=== PATIENT | female | born 1940 | race Caucasian/White ===

== ENCOUNTER 2016-04-09 07:13 | Emergency (ER) | payer OTHER ==
[2016-04-09 07:13] VITALS: BMI 21.4
--- NOTE | 2016-04-09 07:33 | EDPRACDOC ---
- General Information Chief Complaint: Arrhythmia Stated Complaint: RAPID HEART RATE Time Seen by Provider: 04/09/16 07:18 Home Medications: Home Medications Albuterol/Ipratropium Neb [Duoneb] 3 ml NEB Q6H 03/11/16 Alprazolam 0.5 mg PO Q8H PRN 03/11/16 Arformoterol Tartrate [Brovana] 15 mcg IH BID 03/11/16 Aspirin (Enteric Coated) [Ecotrin] 81 mg PO DAILY 03/11/16 Budesonide [Pulmicort] 0.25 mg NEB BID 03/11/16 Calcium Carbonate/Vitamin D3 [Caltrate 600 + D Soft Chew Tab] 1 tab PO DAILY Citalopram (anti-depressant) [Celexa] 20 mg PO DAILY 03/11/16 Clopidogrel Bisulfate [Plavix] 75 mg PO DAILY 03/11/16 Metoprolol Tartrate 25 mg PO BID 03/11/16 Ramipril 2.5 mg PO DAILY 03/11/16 Roflumilast [Daliresp] 500 mcg PO DAILY 03/11/16 Simvastatin 10 mg PO DAILY 03/11/16 Tiotropium [place] [Spiriva] 18 mcg INH DAILY 03/11/16 Ubidecarenone [Co Q-10] 300 mg PO DAILY 03/11/16 Cholecalciferol (Vitamin D3) [Vitamin D3] 2,000 unit PO DAILY 04/09/16 Esomeprazole Mag Trihydrate [Nexium] 40 mg PO DAILY 04/09/16 Levofloxacin [Levaquin] 750 mg PO .DAILY X 7D 04/09/16 Metoprolol Tartrate 50 mg PO BID #60 tablet 04/09/16 Prednisone [Deltasone] 20 mg PO .SEE COMMENTS 04/09/16 Saccharomyces Boulardii [Florastor] 250 mg PO .BID X 10D 04/09/16 Allergies/Adverse Reactions: Allergies Allergy/AdvReac Type Severity Reaction Status Date / Time albuterol Allergy See Verified 04/09/16 07:45 Comments - History of Present Illness HPI: PATIENT HAS HAD 2 EPISODES OF SVT. LAST EPISODE WAS IN WHICH SHE STATES WAS WORSE. SHE DENIES CHANGES IN MEDICATIONS AFTER THIS EVENT. SHE HAS CHRONIC SEVERE COPD. EMS FOUND HER IN A RAPID SVT AND GAVE 6MG OF ADENOSINE WHICH CONVERTED THE RHYTHM TO SINUS. Symptoms Started: Reports: Suddenly Relevant History: Reports: PSVT Heart Rate (bpm): 200 Pulse is: Rapid Worsens with: Reports: Nothing Associated signs & symptoms: Reports: Dyspnea Chest Pain Location: Reports: No Pain ED Past Medical History - History Reviewed Yes Nurses notes reviewed and agree except as marked Travel Outside of [place] in the Last 3 Months?: No - Patient Medical History Cardiac History: Reports: Coronary Artery Disease, Hypertension, Heart Attack, Cardiac Catheterization (with stents), Hypercholesterolemia Respiratory History: Reports: COPD (+ CHRONIC RESP FAILURE + GARRY. 3L NC CONTINUOUS+ BIPAP @NIGHT.), Emphysema GI/ History: Reports: Gastroesophageal Reflux, Diverticulosis (+ polyps. Colonscopy 2009 Dr. Villarreal.). Denies: Urinary Tract Infection Musculoskeletal History: Reports: Arthritis, Osteoarthritis Psychological History: Reports: Anxiety. Denies: Depression, Substance Use Disorder Surgical History: Reports: Cholecystectomy, Hysterectomy, Cardiac Catheterization (with stents) - Family Medical History Reports: Hypertension (SIBLINGS), Diabetes (SIB[place]INGS), Cancer (MOTHER), Stroke ( SISTER MOTHER), Cardiac Disorders ([place]IBLINGS) - Social Medical History Smoking Status: Heavy tobacco smoker (5 or more cigarettes/day or daily pipe/ cigar) Social History: Denies: Substance Use Disorder ETOH: None Substance Abuse: None Lives With: Family Lives In: Home EDM Review of Systems - Review of Systems ROS Negative Except as Marked: Yes All systems reviewed and were negative except as marked Constitutional: No Symptoms Reported. negative: Fever, Chills, Weakness, Fatigue, Loss of Appetite Eyes: No Symptoms Reported. negative: Redness, Blurred Vision, Double Vision, Discharge, Pain, Light Sensitive, Photophobia Ears: No Symptoms Reported. negative: Pain, Hearing Loss, Drainage, Ear Pulling Throat: No Symptoms Reported. negative: Pain, Swelling Nose: No Symptoms Reported. negative: Congestion, Bleeding, Discharge, Injection, Swelling, Deformity, Ecchymosis, Tender, Abrasion, Laceration Mouth: No Symptoms Reported. negative: Pain, Drooling Respiratory: Shortness of Breath. negative: Barky Cough, Brassy Cough, Cough, Hemoptysis, Wheezing Cardiovascular: Palpitations. negative: Chest Pain, Cyanosis, Edema, Orthopnea , PND, Syncope, Skin Mottling Gastrointestinal: No Symptoms Reported. negative: Pain, Constipation, Nausea, Vomiting, Diarrhea, Melena, Formula Intolerance Genitourinary: No Symptoms Reported. negative: Dysuria, Hematuria, Frequency, Discharge, Bleeding, Testicular Pain, Neurological: No Symptoms Reported. negative: Headache, Dizziness, Seizure, Numbness, Weakness, Speech Difficulty, Gait Difficulty Musculoskeletal: No Symptoms Reported. negative: Neck, Chestwall, Ribs, Back, Shoulder, Arm, Elbow, Forearm, Wrist, Hand, Pelvis, Hip, Femur, Knee, Leg, Ankle , Foot Integumentary: No Symptoms Reported. negative: Itching, Rash, Bruising, Wound Allergic/Immunologic: No Symptoms Reported. negative: Hives, Itching Hematologic: No Symptoms Reported. negative: Lymphadenopathy, Easy Bruising, Easy Bleeding Endocrine: No Symptoms Reported. negative: Weight Gain, Weight Loss Psychiatric: No Symptoms Reported. negative: Anxiety, Depression, Hallucinations, Insomnia, Suicidal - Physical Exam Constitutional: Alert (Awake), No apparent distress Oriented to: Time, Person, Place Last recorded Vital Signs: Oxygen Pulse Oxygen Saturation O2 Device Oxygen Flow Rate Fraction of Inspired Oxygen ( FIO2) - HEENT Head: Normal ( normocephalic) Eye Exam: Normal (PERRL, EOMI, Sclera white) Oropharynx: Normal (Pharynx:Moist without exudate,Gums-no swelling) Tympanic Membrane: Normal ENT EAC: Normal TMJ: Normal Nose: No Symptoms Reported (septum midline) Neck: Normal (FROM, trachea at midline) - Respiratory/Cardiovascular Respiratory: Other (CHRONIC COPD CHANGES) Cardiovascular: Normal (RRR without murmur, gallop or rub) - GI Auscultation: Normal (NABS) Palpation: Normal (Soft,No rebound or guarding, non distended) Tenderness: Non tender Rey's Sign: Negative - Bladder: Normal - Musculoskeletal Back: Normal (Non-Tender) Extremities: Normal (Normal tone, Pulses 2+ No cyanosis or edema, FROM) - Integumentary Skin: Normal, Warm, Dry Lymphatics: Normal (no adenopathy) - Neurologic Memory Impaired: Normal Motor Function: Normal (Normal tone, Pulses 2+ No cyanosis or edema, FROM) Cranial Nerve: Normal (CN II-X11 intact sensation, strength 5/5) Cerebellar: Normal Mood Description: Normal Perception: Normal - Differential Diagnosis Atrial fibrillation, PSVT - Results 04/09/16 07:38 04/09/16 07:38 - EKG EKG #1 Initial EKG Time: 07:21 -: Yes EKG interpreted by me Rate: bpm: 87 [place]: Normal Rhythm: NSR, Other (SINUS ARRHYTHMIA) Block: None Hypertrophy: None ST: Normal Decision Time to Discharge: 09:10 - Departure Yes I personally saw and evaluated the patient. Disposition: Home Condition: Stable Final Diagnosis: SVT (supraventricular tachycardia) Instructions: Supraventricular Tachycardia (ED) Education/Counseling Given To: Patient Education/Counseling Given Regarding: Diagnosis, Treatment, Prognosis, Follow Up Referrals: None,No Provider [Primary Care Provider] - One Week Vasile Paris MD [Staff Physician] - One Week Prescriptions: Metoprolol Tartrate 50 mg PO BID #60 tablet
[2016-04-09 07:45] VITALS: TEMP 98.2
--- NOTE | 2016-04-09 07:50 | DIRPT ---
CLINICAL DATA: COPD, episode of supraventricular tachycardia responsive to medication. EXAM: PORTABLE CHEST 1 VIEW COMPARISON: Portable chest x-ray of November 16, 2015 FINDINGS: The lungs remain hyperinflated but are clear. The heart is normal in size. The pulmonary vascularity is normal. The mediastinum is normal in width. There is mild tortuosity of the descending thoracic aorta. There is stable curvature of the thoracolumbar spine. IMPRESSION: Celsius OPD. There is no evidence of CHF, pneumonia, nor other acute cardiopulmonary abnormality. Electronically Signed By: Amish Frias M.D. On: 04/09/2016 07:47
[2016-04-09 08:01] LABS: AUTOMATED BASOPHIL 0.3 % (0-2); AUTOMATED EOSINOPHIL 0.3 % (0-5); AUTOMATED LYMPH 22.6 % (17-44); AUTOMATED MONOCYTE 6.9 % (3-10); AUTOMATED NEUTROPHIL 69.9 % (45-76); MPV 6.9 fL (7.4-10.4)
[2016-04-09 08:08] LABS: BLOOD UREA NITROGEN 18 MG/DL (7-17); CALC CORRECTED 9.4 MG/DL (8.4-10.2); CALCIUM 8.9 MG/DL (8.4-10.2); CALCULATED OSMOLALITY 269 MOs/Kg (270-290); CHLORIDE 98 mEq/L (98-107); GLUCOSE 123 MG/DL (70-99); SODIUM LEVEL 138 mEq/L (137-146); TOTAL PROTEIN 6.5 G/DL (6.3-8.2)
[2016-04-09 08:15] LABS: PARTIAL THROMB. TIME 22.6 SEC (22-35)
[2016-04-09 09:30] VITALS: BP 113/56; PULSE 84
== END 2016-04-09 09:48 | disposition home or self-care (01) ==
LOC: ED 07:13
DX: I47.1 Supraventricular tachycardia (principal)
CPT/HCPCS: 36415; 71010; 80053; 83735; 83880; 84100; 84484; 85025; 85610; 85730; 93005; 99284